=== PATIENT | female | born 2000 | race Caucasian/White ===

== ENCOUNTER → 2023-11-01 | Outpatient (CLI) | payer BC ==
--- NOTE | 2023-11-01 11:57 | US ---
EXAMINATION TYPE: US abdomen comp/pelvis limited DATE OF EXAM: 11/01/2023 COMPARISON: NONE CLINICAL INDICATION: Female, 22 years old with history of R10.32 LEFT LOWER QUADRANT PAIN; Patient st ates abd pain that comes and goes EXAM MEASUREMENTS: Liver Length: 17.7 cm Gallbladder Wall: 0.2 cm CBD: 0.5 cm Spleen: 8.0 cm Right Kidney: 9.9 x 3.8 x 5.5 cm Left Kidney: 10.6 x 6.3 x 5.2 cm 9.9 x 3.8 x 5.5 Slightly limited due to overlying gas Pancreas: WNL as best seen. Partially obscured by gas Liver: wnl. Upper limits of normal in size Gallbladder: No stones seen. Wall WNL. CBD: wnl Spleen: wnl as best seen. intercostal approach used. Right Kidney: No hydronephrosis or masses seen as best seen Left Kidney: No hydronephrosis or masses seen as best seen Upper IVC: wnl Abd Aorta: wnl Bladder: wnl as best seen. Bladder not fully distended. Bilateral Jets Seen Yes IMPRESSION: 1. Borderline liver size. 2. Limited evaluation of pancreas which is partially obscured by bowel gas. 3. Gallbladder, biliary tree and kidneys unremarkable
== END | disposition home or self-care (01) ==
LOC: RADUSWWP 07:56
PROVIDERS: ATTEND Internal Medicine Gastroenterology
DX: R10.32 Left lower quadrant pain (principal)
CPT/HCPCS: 76700; 76857